=== PATIENT | male | born 2000 ===

== ENCOUNTER 2024-04-24 18:04 | Emergency (ER) | payer OTHER ==
[~2024-04-24] VITALS: Ht 180.3 cm; Wt 78.6 kg
[2024-04-24 18:10] VITALS: TEMP 98.3
[2024-04-24] MEDS ORDERED: LR 1,000 ML IV ONE (21:00)
[2024-04-24] MEDS ORDERED: Ketorolac 15 MG/ML VIAL IV ONE (21:00)
[2024-04-24 21:21] LABS: BASO % 0.7 % (0.0-2.0); EOS # 0.2 K/mm3 (0.0-0.7); EOS % 2.9 % (0.0-4.0); GRAN # 2.7 K/mm3 (1.4-6.5); GRAN % 44.5 % (42.2-75.2); HEMATOCRIT 46.1 % (42.0-52.0); LYMPH # 2.6 K/mm3 (1.2-3.4); LYMPH % 43.8 % (20.0-51.0); MEAN CELL VOLUME 84 fl (80.0-100.0); MEAN CORPUSCULAR HEMOGLOBIN 29 pg (27-31); MEAN CORPUSCULAR HGB CONC 35 g/dl (33.0-37.0); MEAN PLATELET VOLUME 9.9 fl (7.4-10.4); MONO # 0.5 K/mm3 (0.1-0.6); MONO % 7.9 % (1.7-9.3); PLATELET COUNT 251 K/mm3 (130-400); RED BLOOD COUNT 5.48 M/mm3 (4.20-5.60); REDCELL DISTRIBUTION WIDTH-CV 11.9 % (11.5-14.5)
[2024-04-24 21:41] LABS: ALBUMIN 4.4 g/dL (3.5-5.0); BILIRUBIN,TOTAL 0.7 mg/dL (0.2-1.2); CREATININE, serum 1.02 mg/dL (0.72-1.25); POTASSIUM 3.6 mEq/L (3.5-4.5); TOTAL PROTEIN 7.5 g/dl (6.2-8.1)
[2024-04-24 22:54] LABS: URINE APPEARANCE CLEAR (CLEAR/HAZY); URINE BLOOD NEGATIVE (NEGATIVE); URINE COLOR YELLOW (YELLOW); URINE GLUCOSE NEGATIVE (NEGATIVE); URINE KETONE TRACE (NEGATIVE); URINE NITRATE NEGATIVE (NEGATIVE); URINE PROTEIN(semi-quant) NEGATIVE (NEGATIVE)
[2024-04-24 23:11] LABS: COLLECTION METHOD CLEAN CATCH
[2024-04-24 23:32] VITALS: BP 107/58; PULSE 56
== END 2024-04-24 23:32 | disposition home or self-care (01) ==
LOC: COL.ER 18:04
PROVIDERS: Emergency Medicine
DX: S39.012A Strain of muscle, fascia and tendon of lower back, initial encounter (principal); X50.0XXA Overexertion from strenuous movement or load, initial encounter
CPT/HCPCS: J1885; J3360; J7120